=== PATIENT | female | born 1990 | race Caucasian/White ===

== ENCOUNTER 2019-05-19 12:18 | Inpatient (IN) | payer OTHER ==
[~2019-05-19] VITALS: Ht 152.4 cm; Wt 65.4 kg
--- NOTE | 2019-05-19 14:15 | NUR ---
DR. WEBB INFORMED OF PATIENT ARRIVING TO THE FLOOR.
[2019-05-19 15:17] LABS: BILIRUBIN NEGATIVE (NEGATIVE); BLOOD NEGATIVE (NEGATIVE); CLARITY CLEAR (CLEAR); COLOR YELLOW (YELLOW); GLUCOSE NEGATIVE (NEGATIVE); KETONE TRACE (NEGATIVE); LEUKO ESTERASE 1+ (NEGATIVE); NITRITE NEGATIVE (NEGATIVE); SPECIFIC GRAVITY 1.015 (1.005-1.030); UROBILINOGEN 0.2 E.U./dl (0.2-1.0)
[2019-05-19 15:25] LABS: EPITHELIAL CELLS 51-100
[2019-05-19 15:26] LABS: BACTERIA 2+; WBC 31-40 wbc/hpf (0-5)
[2019-05-19 16:00] VITALS: BP 113/66
[2019-05-19 16:01] LABS: BASO # 0.1 10*3/uL (0.0-0.1); BASO % 0.7 % (0.0-1.0); EOS # 0.1 10*3/uL (0.0-0.4); EOS % 0.5 % (1.0-4.0); HEMATOCRIT 41.1 % (37.0-47.0); HEMOGLOBIN 13.8 g/dl (12.0-16.0); LYMPH # 1.6 10*3/uL (1.3-4.4); LYMPH % 14.9 % (27.0-41.0); MEAN CELL VOLUME 91.1 fl (81.0-99.0); MEAN CORPUSCULAR HGB 30.6 pg (27.0-31.0); MEAN CORPUSCULAR HGB CONC 33.6 g/dl (33.0-37.0); MEAN PLATELET VOLUME 9.8 fl (9.6-12.3); MONO # 0.4 10*3/uL (0.1-1.0); MONO % 3.6 % (3.0-9.0); NEUT # 8.4 10*3/uL (2.3-7.9); NEUT % 79.7 % (47.0-73.0); PLATELET COUNT AUTOMATED 301 10*3/uL (130-400); RED BLOOD COUNT 4.51 10*6/uL (4.10-5.10); RED CELL DISTRI WIDTH 13.2 % (0-14.5); WHITE BLOOD COUNT 10.5 10*3/uL (4.8-10.8)
[2019-05-19 16:10] LABS: URINE AMPHETAMINES < 1000 (1000ng/ml); URINE BARBITURATES < 200 (200ng/ml); URINE BENZODIAZEPINES > 200 (200ng/ml); URINE CANNABINOIDS (THC) < 50 (50ng/ml); URINE COCAINE < 300 (300ng/ml); URINE METHADONE < 300 (300ng/ml)
[2019-05-19 16:15] LABS: URINE OPIATES < 300 (300ng/ml); URINE PHENCYCLIDINE < 25 (25ng/ml)
[2019-05-19 16:22] LABS: ALBUMIN 3.5 gm/dl (3.1-4.5); ALKALINE PHOSPHATASE 57 U/L (45-117); BUN 9 mg/dl (7-24); CHLORIDE 109 mmol/L (98-107); CREATININE 0.51 mg/dL (0.55-1.02); ETHYL ALCOHOL < 3.0 mg/dl (<3); POTASSIUM 4.4 mmol/L (3.5-5.1); SGOT/AST 18 IU/L (3-35); SGPT/ALT 32 U/L (12-78); SODIUM 136 mmol/L (136-145); TOTAL PROTEIN 7.4 gm/dL (6.4-8.2)
[2019-05-19 17:14] LABS: INTERNATIONAL NORM RATIO 0.9 (2.0-3.5)
--- NOTE | 2019-05-19 17:25 | NUR ---
PT REFUSED IV START AT THIS TIME. DR. WEBB NOTIFIED.
--- NOTE | 2019-05-19 17:54 | NUR ---
PATIENT MEETS [facility]. CINA=[id number], CIWA(B)=[id number]. PATIENT WANTS TO FOLLOW WITH [facility] IN [place], [place] FOR OUTPATIENT TREATMENT. RUBEN SHERWOOD B.A. ELECTROTYPER
--- NOTE | 2019-05-19 19:12 | NUR ---
PATIENT MEDICATED WITH REQUIP FOR COMPLAINTS OF RESTLESS LEGS.
--- NOTE | 2019-05-19 20:00 | NUR ---
PATIENT REFUSED TO HAVE VITALS DONE.
--- NOTE | 2019-05-19 23:27 | NUR ---
PATIENT EXTREMELY LETHARGIC. AFTER MULTIPLE ATTEMPTS TO AWAKEN PATIENT TO GIVE HER SUBUTEX SHE YELLS NO. MEDICATION WASTED WITH WITNESS OF OBDULIA MONTES RN.
[2019-05-20 08:00] VITALS: BP 92/58
--- NOTE | 2019-05-20 08:26 | NUR ---
ROBAXIN GIVEN FOR MUSCLE ACHES AND NICOTINE PATCH GIVEN PER PATIENT REQUEST. WILL ASSESS FOR EFFECTIVENESS.
--- NOTE | 2019-05-20 09:30 | NUR ---
PATIENT STATED ROBAXIN AND NICOTINE PATCH SLIGHTLY EFFECTIVE. WILL CONTINUE TO MONITOR.
--- NOTE | 2019-05-20 10:35 | NUR ---
PATIENT COMPLAINED OF ANXIETY, RESTLESS LEG, AND ABDOMINAL DISCOMFORT. VISTARIL, REQUIP, AND BENTYL GIVEN PER PATIENT REQUEST. WILL ASSESS EFFECTIVENESS.
--- NOTE | 2019-05-20 11:26 | NUR ---
PATIENT IS GOING TO FOLLOW [facility] WITH [facility] FOR OUTPATIENT TREEATMENT IN [place], [place]. [place] STAFF WILL FOLLOW UP WITH PATIENT. RUBEN SHERWOOD B.A. CUTTING MACHINE OPERATOR HELPER
--- NOTE | 2019-05-20 11:38 | NUR ---
PRN MEDICATIONS SLIGHTLY EFFECTIVE AT THIS TIME. WILL CONTINUE TO MONITOR.
[2019-05-20 12:00] VITALS: BP 100/63
--- NOTE | 2019-05-20 12:16 | NUR ---
PT CAME TO THE DESK AND STATES SHE WANTS TO LEAVE. AMA PAPER TAKEN TO ROOM. PT STATES SHE WANTS A NEW DR RE: SUBTEX MG DOSES. SHE ALSO WANTS TO KNOW WHEN NEXT SUBUTEX DOSE IS DUE, SHE WILL "PROBABLY LEAVE AFTER THAT" DR WEBB CALLED AND MADE AWARE.
--- NOTE | 2019-05-20 14:12 | NUR ---
PRN MEDS ZOFRAN, MOTRIN, AND IMMODIUM GIVEN PER PATIENT REQUEST. WILL ASSESS FOR EFFECTIVENESS.
--- NOTE | 2019-05-20 15:02 | NUR ---
PRN MEDS SLIGHTLY EFFECTIVE. WILL CONTINUE TO MONITOR. PATIENT RESTING IN BED. CALL LIGHT WITHIN REACH. SIDE RAILS UP X2.
[2019-05-20 16:00] VITALS: BP 77/55; BP 90/60
--- NOTE | 2019-05-20 16:47 | NUR ---
24 HR chart check completed.
[2019-05-20 20:00] VITALS: BP 95/56
--- NOTE | 2019-05-20 20:30 | NUR ---
PATIENT IS RESTING IN BED WITH EASY AND REGULAR RESPERS ON ROOM AIR. ASSESSMENT IS COMPLETE. PATIENT IS AGITATED, DIAOHORETIC, SPEECH IS SLURRED, AND PATIENT C/O LEG PAIN/CRAMPING. INFORMED PATIENT THAT PRN MEDICATION FOR LEG CRAMPING ISNT DUE AT THIS TIME. PATIENT VERBALIZED WISHES TO LEAVE D/T MISSING DOSE OF SUBUTEX LAST NIGHT, BUT THEN SAYS SHE IS GOING TO STAY AND SEE IF SHE CAN GET ANYMORE HELP. PATIENT INFORMED RN THAT SHE HAS BEEN SOBER FOR 5 YEARS AND HAS A BOTTLE FULL OF SUBUTEX AT HOME, AND THE 2MG DOSE DUE AT MIDNIGHT ISNT GOING TO HELP HER AT ALL. BED IS LOW, LOCKED, AND CALL LIGHT IS WITHIN REACH. WILL CONTINE TO MONITOR.
--- NOTE | 2019-05-20 21:11 | NUR ---
PATIENT C/O RESTLESS LEGS. PRN REQUIP PROVIDED. CALL LIGHT IS WITHIN REACH.
--- NOTE | 2019-05-20 22:40 | NUR ---
PRN TRAZADONE GIVEN FOR C/O INSOMNIA. CALL LIGHT IS WITHIN REACH.
[2019-05-21] VITALS: BP 123/54
--- NOTE | 2019-05-21 01:16 | NUR ---
PRN MEDICATIONS APPEAR EFFECTIVE, PATIENT IS SLEEPINGW WITH EASY AND REGULAR RESPERS ON ROOM AIR. CALL LIGHT IS WITHIN REACH.
[2019-05-21 08:00] VITALS: BP 95/51
[2019-05-21 12:00] VITALS: BP 110/52
--- NOTE | 2019-05-21 12:00 | NUR ---
THIS NURSE CALLED MULTIPLE PHARMACIES TO TRY AND VERIFY XANAX PT STATES SHE GETS. NO XANAX FILLED AT PHARMACIES PROVIDED. NO XANAX LISTED ON CLAIN HISTORY. DR WEBB NOTIFIED.
--- NOTE | 2019-05-21 13:15 | NUR ---
DR WEBB CALLED AND NOTIFIED OF PT EPISODE OF VOMITING. OK TO GIVE DOSE OF ZOFRAN NOW.
--- NOTE | 2019-05-21 13:57 | NUR ---
Patient signed out AMA. Patient encouraged to stay and advised of possible consequences of premature discharge. Physician and statement clerks supervisor ROSALIA notified. Patient instructed what to do regarding care post-departure from the hospital; emergency phone numbers provided. Patent was accompanied by SELF/SECURITY. PATIENT HAD LEFT THE FLOOR, PATIENT SIGNED SELF OUT AMA PER POLICY. REFUSED TO SIGN PAPERWORK KAIA CHO
[2019-05-21] MEDS ORDERED: XANAX2 M1 PO ×2 (15:08→18:13)
[2019-05-21] MEDS ORDERED: ZOFRAN4 MG PO (15:09)
[2019-05-21] MEDS ORDERED: TRAZODONE50 MG PO (18:14)
== END 2019-05-21 13:57 | disposition left against medical advice (07) | DRG 770 ==
LOC: 5E 12:18
PROVIDERS: Student in an Organized Health Care Education/Training Program; ADMIT Internal Medicine
DX: F11.23 Opioid dependence with withdrawal (principal); F13.10 Sedative, hypnotic or anxiolytic abuse, uncomplicated; F41.9 Anxiety disorder, unspecified; F32.9 Major depressive disorder, single episode, unspecified; F17.210 Nicotine dependence, cigarettes, uncomplicated; G25.81 Restless legs syndrome; Z98.51 Tubal ligation status

== ENCOUNTER 2019-05-21 14:39 | Inpatient (IN) | payer OTHER ==
[~2019-05-21] VITALS: Ht 154.9 cm; Wt 55.3 kg
[2019-05-21 14:40] VITALS: BP 116/76
[2019-05-21] MEDS ORDERED: XANAX2 M1 PO ×2 (15:08→18:13)
[2019-05-21] MEDS ORDERED: ZOFRAN4 MG PO (15:09)
--- NOTE | 2019-05-21 15:21 | NUR ---
ACCIDENTLY THREW UNOPENED ZOFRAN AWAY WHILE CLEANING UP TRASH. PILL IS STILL UNOPEN BUT IN TRASH. CALLED PHARMACY AND EXPLAINED WHAT HAPPENED.
--- NOTE | 2019-05-21 16:35 | NUR ---
ATTEMPTED IV X2 PT STATES "IM AN IV DRUG USER THEY WONT BE ABLE TO GET IV I WOULD RATHER HAVE A SHOT"
--- NOTE | 2019-05-21 17:30 | NUR ---
BLOOD TINGED EMESIS NOTED. DR FAITH NOTIFIED.
[2019-05-21] MEDS ORDERED: TRAZODONE50 MG PO (18:14)
[2019-05-21 18:15] VITALS: BP 136/92
--- NOTE | 2019-05-21 18:15 | NUR ---
A 29, admitted to , under the services of SHOBHA Bonds DO with a diagnosis of NAUSEA/VOMITING. Chief complaint is LEFT [facility] AND WENT TO ER. Patient arrived via ambulatory from ER. PT CONTINUES TO TRY TO FORCEABLY VOMIT, PACING CALLED HER MOTHER TO COME AND GET HER Initial assessment completed. Vital signs taken and recorded. SHOBHA BONDS DO notified of admission See assessment for past medical history, medications and allergies. Patient and/or family oriented to unit. [facility] visitation policy reviewed. Clothing/patient valuable form completed. SUDHA MOTTA
[2019-05-21 18:30] VITALS: BP 136/92
[2019-05-21 20:00] VITALS: BP 123/75
--- NOTE | 2019-05-21 20:56 | NUR ---
PATIENT WALKING DOWN THE HALLWAY TO LEAVE, STOPPED HER. SHE STATED SHE WAS LEAVING AND HAD A RIDE, I REMOVED HEP LOCK. REFUSED TO SIGN AMA PAPER.
== END 2019-05-21 20:59 | disposition left against medical advice (07) | DRG 249 ==
LOC: ED 14:39 → EDHOLD 17:34 → 5E 17:46
PROVIDERS: ADMIT Emergency Medicine
DX: R11.2 Nausea with vomiting, unspecified (principal); F41.9 Anxiety disorder, unspecified; F32.9 Major depressive disorder, single episode, unspecified; Z53.21 Procedure and treatment not carried out due to patient leaving prior to being seen by health care provider; Z98.51 Tubal ligation status